=== PATIENT | male | born 1970 | race Caucasian/White ===

== ENCOUNTER 2020-06-06 09:28 | Emergency (ER) | payer MEDICARE, MEDICAID ==
[~2020-06-06] VITALS: Ht 185.4 cm; Wt 127.3 kg
[~2020-06-06 09:28] MED LIST: ASPI-920 PO; ATOR20TA66 PO; CLIN150C8 PO; DIL100C PO; DIVA-76 PO; ESCI20TA39 PO; FURO-150 PO; LISI10TA27 PO; METO25TA6 PO; PHEN100C4 PO; POTA8TAB3 PO; PRAZ1CAP5 PO; SUMA50TA PO; VENL37.55 PO
[2020-06-06 09:50] VITALS: BP 159/97
[2020-06-06] MEDS ORDERED: LIDOcaine 1% W/epiNEPHrine 1:200,000 10ml vial IJ ONE (10:25)
[2020-06-06] MEDS ORDERED: SULF1TAB49 PO (10:26)
== END 2020-06-06 11:19 | disposition home or self-care (01) ==
LOC: ER 09:29
DX: L02.811 Cutaneous abscess of head [any part, except face] (principal); I10 Essential (primary) hypertension; F32.9 Major depressive disorder, single episode, unspecified; Z86.14 Personal history of Methicillin resistant Staphylococcus aureus infection; Z86.69 Personal history of other diseases of the nervous system and sense organs; Z98.890 Other specified postprocedural states; Z79.82 Long term (current) use of aspirin; Z79.899 Other long term (current) drug therapy
CPT/HCPCS: 10060; 87070; 87077; 87186; 99283

== ENCOUNTER 2021-05-28 15:24 | Emergency (ER) | payer MEDICARE, MEDICAID ==
[~2021-05-28] VITALS: Ht 188 cm; Wt 125.0 kg
[~2021-05-28 15:24] MED LIST changes: +LOP25T PO; -METO25TA6 PO; -POTA8TAB3 PO; +POTA8TAB69 PO
--- NOTE | 2021-05-28 16:07 | NUR ---
provider at bedside.
--- NOTE | 2021-05-28 16:15 | NUR ---
xray at bedside.
--- NOTE | 2021-05-28 16:40 | NUR ---
provider at bedside.
[2021-05-28] MEDS ORDERED: IBUP-1986 PO (16:42)
[2021-05-28] MEDS ORDERED: ibuprofen tablet 400 MG TABLET PO ONE (16:45)
[2021-05-28 16:51] VITALS: BP 148/94
== END 2021-05-28 16:51 | disposition home or self-care (01) ==
LOC: ER 15:26
DX: M25.511 Pain in right shoulder (principal); I10 Essential (primary) hypertension; F32.9 Major depressive disorder, single episode, unspecified; W19.XXXA Unspecified fall, initial encounter; Y93.89 Activity, other specified; Y92.89 Other specified places as the place of occurrence of the external cause; Y99.8 Other external cause status
CPT/HCPCS: 73030; 99283

== ENCOUNTER 2022-01-11 15:04 | Emergency (ER) | payer MEDICARE, MEDICAID ==
[~2022-01-11] VITALS: Ht 188 cm; Wt 115.5 kg
[~2022-01-11 15:04] MED LIST changes: +IBUP-1986 PO
[2022-01-11 16:06] VITALS: BP 154/91
[2022-01-11] MEDS ORDERED: HYDROcodone/acetaminophen 5mg/325mg tablet PO ONE (18:15)
[2022-01-11] MEDS ORDERED: HYDR-3965 PO (18:59)
== END 2022-01-11 19:21 | disposition home or self-care (01) ==
LOC: ER 15:04
DX: M54.59 Other low back pain (principal); M25.512 Pain in left shoulder; I10 Essential (primary) hypertension; F32.A Depression, unspecified; Z79.899 Other long term (current) drug therapy; Z79.82 Long term (current) use of aspirin; W19.XXXA Unspecified fall, initial encounter; Y93.89 Activity, other specified; Y92.89 Other specified places as the place of occurrence of the external cause; Y99.8 Other external cause status
CPT/HCPCS: 73502; 99283